=== PATIENT | male | born 1995 | race Caucasian/White ===

== ENCOUNTER → 2019-06-26 07:28 | Outpatient (CLI) | payer OTHER, SELFPAY ==
--- NOTE | 2019-06-26 | DI.MRI.S_ITS ---
PROCEDURE: MR LOWER LEG RT WO CON INDICATIONS: Unspecified enthesopathy, lower limb, excluding fo TECHNIQUE: Noncontrast coronal and sagittal T1 spin echo and STIR; axial T1 spin echo and T2 fast spin echo with fat saturation through the right lower leg. COMPARISON: None. FINDINGS: Image quality: Excellent. Bones: The visualized bone marrow demonstrates normal signal on all sequences. The overlying cortex appears intact. No fractures lines or intra-osseous lesions. Soft tissues: The scanned muscles demonstrate normal overall bulk and internal signal. Subcutaneous tissues appear normal as well. No soft tissue masses are present. IMPRESSION: No evidence of stress reaction or stress fracture. No marrow edema. No enthesophyte formation. No lower leg muscle or tendon signal abnormality. No soft tissue mass or fluid collection. Dictated by: Andrei Fofana M.D. on 06/26/2019 at 10:30 Approved by: Andrei Fofana M.D. on 06/26/2019 at 10:40
--- NOTE | 2019-06-26 | DI.MRI.S_ITS ---
PROCEDURE: MR LOWER LEG LEFT WO CON INDICATIONS: Unspecified enthesopathy, lower limb, excluding fo TECHNIQUE: Noncontrast coronal and sagittal T1 spin echo and STIR; axial T1 spin echo and T2 fast spin echo with fat saturation through the left lower leg. COMPARISON: None. FINDINGS: Image quality: Excellent. Bones: The visualized bone marrow demonstrates normal signal on all sequences. The overlying cortex appears intact. No fractures lines or intra-osseous lesions. Soft tissues: The scanned muscles demonstrate normal overall bulk and internal signal. Subcutaneous tissues appear normal as well. No soft tissue masses are present. IMPRESSION: No evidence of stress reaction or stress fracture. No marrow edema. No enthesophyte formation. No lower leg muscle or tendon signal abnormality. No soft tissue mass or fluid collection. Dictated by: Andrei Fofana M.D. on 06/26/2019 at 10:40 Approved by: Andrei Fofana M.D. on 06/26/2019 at 10:45
== END ==
PROVIDERS: Visit Provider General Practice
DX: M76.9 Unspecified enthesopathy, lower limb, excluding foot (principal)
CPT/HCPCS: 73718